=== PATIENT | female | born 1975 | race Caucasian/White ===

== ENCOUNTER → 2019-07-29 16:34 | Outpatient (CLI) | payer OTHER, SELFPAY ==
[2019-08-04 21:33] LABS: HPV APTIMA, High Risk Negative (Negative)
== END ==
PROVIDERS: Visit Provider Obstetrics & Gynecology
DX: Z12.4 Encounter for screening for malignant neoplasm of cervix (principal)
CPT/HCPCS: 87624; 88175; G0145

== ENCOUNTER → 2019-11-25 11:25 | Outpatient (CLI) | payer OTHER, SELFPAY ==
--- NOTE | 2019-11-25 11:29 | BI_ITS ---
MAMMOGRAPHY - BILATERAL SCREENING REASON FOR EXAM: Female, 44 years old. Routine annual screening examination. PERTINENT HISTORY: Mother with breast cancer. Aunt with breast cancer. TECHNIQUE: Digital bilateral breast catina (3D mammographic acquisition) in the CC and MLO projections. 2-D mediolateral oblique (MLO) and craniocaudad (CC) views of both breasts were obtained. CAD: Full Field Digital Mammography with Computer Added Detection was performed. COMPARISON: None. Baseline examination. FINDINGS: Breast Composition: There are scattered areas of fibroglandular density. There are no dominant masses or suspicious calcifications. Small benign-appearing bilateral axillary nodes. No other significant abnormalities are identified. BI/SCREEN MAMM (CAD) W/CATINA BILAT IMPRESSION: Negative screening mammogram. Yearly followup mammogram recommended. (A) ASSESSMENT CATEGORY: BIRADS Category 1: Negative. A letter regarding these results will be sent to the patient by the facility within 30 days. Approximately 10% of breast cancers are not detected by mammography. A normal mammogram should not delay biopsy of a clinically suspicious abnormality. [id number] Electronically Signed: Abrahan Dueñas, at 15:34 EDT , Service support ,
== END ==
PROVIDERS: PCP Family Medicine; Referring Provider Obstetrics & Gynecology; Visit Provider Obstetrics & Gynecology
DX: Z12.31 Encounter for screening mammogram for malignant neoplasm of breast (principal)
CPT/HCPCS: 77063; 77067

== ENCOUNTER → 2022-09-26 | Outpatient (CLI) | payer OTHER, SELFPAY ==
[2022-09-26 11:17] LABS: Absolute Lymphocyte Count 1.58 X10^3/uL (0.83-4.51); Absolute Neutrophil Count 1.9 X10^3/uL (2.0-7.7); Basophil# 0.06 X10^3/uL; Basophil% 1.5 % (0-1); Eosinophils% 2.5 % (0-5); Hematocrit 42.4 % (37-47); Hemoglobin 13.7 g/dL (12.0-15.0); Lymphocyte # 1.58 X10^3/ul (0.83-4.51); Lymphocyte % 39.9 % (19-41); Mean Corp Hgb Conc 32.3 g/dL (32-36); Mean Corpuscular Hgb 30.7 pg (27.0-32.0); Mean Corpuscular Volume 95.1 fL (81-99); Mean Platelet Vol. 8.7 fl (6.2-12.0); Monocyte# 0.28 X10^3/uL; Monocyte% 7.1 % (0-10); NRBC Flagged by Analyzer 0 % (0-5); Neutrophil # 1.93 X10^3/uL (2.7-7.7); Neutrophil % 48.7 % (47-70); Platelet Count 323 K/mm3 (150-450); RBC Distribution Width CV 12.7 % (11.6-14.6); RBC Distribution Width SD 44.3 fl (35.1-43.9); Red Blood Count 4.46 M/mm3 (4.2-5.4)
[2022-09-26 11:37] LABS: Estradiol 109.8 pg/mL; Follicle Stimulating Hormone 5.7 mIU/mL; Luteinizing Hormone 6.4 mIU/mL; Prolactin 15.3 ng/mL; T4 Free Direct 0.88 ng/dL (0.76-1.46); Thyroid Stim Hormone (TSH) 3.79 uIU/mL (0.358-3.74)
[2022-09-28 03:07] LABS: Testosterone Free 1.3 pg/mL (0.0-4.2)
== END | disposition home or self-care (01) ==
LOC: WOBLAB 10:41
PROVIDERS: PCP Family Medicine; Visit Provider Student in an Organized Health Care Education/Training Program
DX: N93.9 Abnormal uterine and vaginal bleeding, unspecified (principal)
CPT/HCPCS: 36415; 82670; 83001; 83002; 84146; 84402; 84439; 84443; 85025

== ENCOUNTER → 2022-10-11 | Outpatient (CLI) | payer OTHER, SELFPAY ==
--- NOTE | 2022-10-11 09:24 | US_ITS ---
STUDY: ULTRASOUND BREAST - RIGHT REASON FOR EXAM: Female, 46 years old. Nipple discharge in the right breast. TECHNIQUE: Axial and longitudinal images of the RIGHT breast were performed with a high resolution ultrasound transducer. # OF IMAGES: 44 COMPARISON: Comparison is made with prior mammogram done earlier in the day. FINDINGS: RIGHT Breast: The retroareolar region of the breast was examined with ultrasound. No sonographic abnormality is seen. IMPRESSION: No sonographic abnormality is seen. ASSESSMENT CATEGORY: BIRADS Category 1: Negative. A letter regarding these results will be sent to the patient by the facility within 30 days. Electronically Signed: Abrahan Dueñas MD at 10:58 EDT , STUDY: ULTRASOUND BREAST - LEFT REASON FOR EXAM: Female, 46 years old. Nipple discharge in the left breast. TECHNIQUE: Axial and longitudinal images of the LEFT breast were performed with a high resolution ultrasound transducer. # OF IMAGES: 44 COMPARISON: Comparison is made with prior mammogram done earlier in the day. FINDINGS: COMPARISON: Comparison is made with prior mammogram done earlier in the day. FINDINGS: LEFT Breast: The left retroareolar region was examined with ultrasound. No sonographic abnormality is seen. US/Breast Limited Unilateral
--- NOTE | 2022-10-11 09:24 | BI_ITS ---
MAMMOGRAPHY - BILATERAL DIAGNOSTIC REASON FOR EXAM: Female, 46 years old. Bilateral greenish discharge. PERTINENT HISTORY: Mother with breast cancer. Aunt with breast cancer. TECHNIQUE: Digital bilateral breast madalyn (3D mammographic acquisition) in the CC and MLO projections. 2-D mediolateral oblique (MLO) and craniocaudad (CC) views of both breasts were obtained. CAD: Full Field Digital Mammography with Computer Added Detection was performed. COMPARISON: Comparison is made with prior examination dated November 25, 2019. FINDINGS: Breast Composition: There are scattered areas of fibroglandular density. There are no dominant masses or suspicious calcifications. Stable benign-appearing bilateral axillary lymph nodes. No other significant abnormalities are identified. There has been no significant change since the prior study. BI/DIAG MAMM W/CAD, BILAT IMPRESSION: Stable bilateral diagnostic mammogram. With the patient''s history of bilateral breast discharge, correlation with ultrasound is recommended. ASSESSMENT CATEGORY: BIRADS Category 0: Incomplete. Need additional imaging evaluation. A letter regarding these results will be sent to the patient by the facility within 30 days. Approximately 10% of breast cancers are not detected by mammography. A normal mammogram should not delay biopsy of a clinically suspicious abnormality. Electronically Signed: Abrahan Dueñas MD at 10:53 EDT ,
== END | disposition home or self-care (01) ==
PROVIDERS: PCP Family Medicine; Referring Provider Student in an Organized Health Care Education/Training Program; Visit Provider Student in an Organized Health Care Education/Training Program
DX: N64.52 Nipple discharge (principal)
CPT/HCPCS: 76642; 77062; 77066; G0279

== ENCOUNTER 2025-03-28 18:56 | Emergency (ER) | payer OTHER, SELFPAY ==
[2025-03-28 18:59] VITALS: BP 138/65; PULSE 97; RESP 18; TEMP 36.1; O2SAT 100; BMI 38.8
--- NOTE | 2025-03-28 19:10 | US_ITS ---
PROCEDURE: US/Transvaginal Non-
--- NOTE | 2025-03-28 19:12 | ED.VIS.FEGU ---
HPI HPI - Female History of Present Illness Chief Complaint: Vag Bleeding Detail of Chief Complaint: Vaginal bleeding Informant: patient Narrative Narrative: Patient presents to the emergency department complaint of vaginal bleeding x 42 days. She thinks that she may have had a day or 2 in between where she was not having a lot of bleeding. Lately she has been passing large clots about every 30 minutes. She describes some pressure in her pelvis. Today she just did not feel right so she comes in for evaluation. She has not seen an SERVICE DESK ANALYST for this. She has not seen her primary care physician. Patient denies abdominal pain otherwise. She denies urinary symptoms. PFSH PFSH Home Medications ?Medication ?Instructions ?Recorded ?Last Taken ?Type medroxyprogesterone 10 mg tablet 10 mg PO DAILY #60 tabs 03/28/25 Unknown Rx (Provera) Allergy/AdvReac Type Severity Reaction Status Date / Time Latex, Natural Rubber Allergy Rash Verified 03/28/25 18:58 Social History Smoking Status: Never smoker ROS ROS ED Review of Systems ROS Unobtainable: other Constitutional Constitutional ED: Reports lethargy; Denies chills, fever(s), sweats or weight loss Eyes Eyes: Denies blurry vision, change in vision or diplopia ENT ENT ED: Denies rhinorrhea or sore throat Cardiovascular Cardiovascular: Denies chest pain, orthopnea or racing heartbeat Respiratory/Chest Respiratory/Chest: Denies cough, dyspnea, dyspnea on exertion, orthopnea or sputum Gastrointestinal Gastrointestinal: Denies abdominal pain, diarrhea, nausea or vomiting Genitourinary Genitourinary ED: Reports other Details: Vaginal bleeding ; Denies dysuria, hematuria or urinary frequency Musculoskeletal Musculoskeletal: Denies arthralgias, back pain, myalgias or neck pain Integumentary Denies abscess, Abrasions or rash Neurologic Neurologic: Denies headache(s) or weakness Psychiatric Psychiatric: Denies anxiety, depression or suicidal thoughts Endocrine Endocrinology: Denies polydipsia, polyphagia or polyuria Hematologic/Lymphatic Hematologic/Lymphatic: Denies easy bleeding, easy bruising or lymphadenopathy Allergic/Immunologic Allergic/Immunologic ED: Denies mouth swelling, tongue swelling or urticaria EXAM Physical Exam Const Vital Signs: 03/28/25 18:59 03/28/25 19:44 03/28/25 21:47 Temperature 97 F L Temperature Source Temporal Pulse Rate 97 89 Pulse Rate [Sitting (for 1 minute prior to obtaining)] 95 Pulse Rate [Standing (for 1 minute prior to obtaining)] 93 Respiratory Rate 18 18 Blood Pressure 138/65 H 137/73 H Blood Pressure [Lying] 126/59 H Blood Pressure [Sitting (for 1 minute prior to obtaining)] 146/63 H Blood Pressure [Standing (for 1 minute prior to obtaining)] 123/57 H Blood Pressure Mean 89 94 Blood Pressure Mean [Lying] 81 Blood Pressure Mean [Sitting (for 1 minute prior to obtaining)] 90 Blood Pressure Mean [Standing (for 1 minute prior to obtaining)] 79 Pulse Ox 100 99 Oxygen Delivery Method Room Air Room Air 03/28/25 23:00 Temperature Temperature Source Pulse Rate 81 Pulse Rate [Sitting (for 1 minute prior to obtaining)] Pulse Rate [Standing (for 1 minute prior to obtaining)] Respiratory Rate Blood Pressure 138/69 H Blood Pressure [Lying] Blood Pressure [Sitting (for 1 minute prior to obtaining)] Blood Pressure [Standing (for 1 minute prior to obtaining)] Blood Pressure Mean 87 Blood Pressure Mean [Lying] Blood Pressure Mean [Sitting (for 1 minute prior to obtaining)] Blood Pressure Mean [Standing (for 1 minute prior to obtaining)] Pulse Ox Oxygen Delivery Method Positive well nourished and well developed General Appearance ED: well developed and NAD HEENT Reports TM's clear and moist mucous membranes normocephalic and atraumatic; Negative for trauma or tenderness Tympanic Membrane ED: Yes TM's clear Eyes PERRL and EOMs intact bilaterally General Eye ED: Negative for pale conjunctiva or scleral icterus Neck no lymphadenopathy, supple and no JVD General: Negative for tenderness Chest Wall inspection of chest normal and palpation of chest normal Chest: Negative for tenderness Resp normal respiratory effort and clear to auscultation bilaterally Effort and Inspection: Negative for respiratory distress or pain with movement Auscultation: Negative for rhonchi, wheezes or diminished lung sounds Cardio regular rate, regular rhythm, S1 normal heart sound, S2 normal heart sound and no murmurs Peripheral Pulses: pulses 2+ throughout GI normal to inspection, nondistended, normoactive bowel sounds, soft to palpation, non-tender, non-distended and no masses Back/Spine no CVA tenderness and no thoracic nor lumbar tenderness Extremity normal to inspection General Extremety ED: Negative for edema General Extremity: Negative for edema Neuro oriented x3, CN's II-XII intact bilaterally, no sensory deficits noted and gait normal Sensorium / Orientation: awake, alert, oriented to person, oriented to place and oriented to time Motor Exam: strength 5/5 throughout and strength abnormal Psych mental status grossly normal Skin no rashes or lesions noted and no wounds MDM MDM MDM Narrative Medical decision making narrative: Patient presents with persistent vaginal bleeding with passing clots. IV line will be established. Type and screen will be ordered. Basic labs will be obtained. Will obtain a pelvic ultrasound to evaluate further. Will obtain a serum hCG. CBC with differential obtained from a count 4.5 with hemoglobin 8.8 and platelet count of 209. hCG was negative. Pelvic ultrasound showed thickened endometrium with differential to include hyperplasia/carcinoma/endometrial polyp or submucosal fibroid. Patient also with prominent periuterine veins which can be seen with clinical diagnosis of pelvic congestion syndrome. Discussed case with SERVICE DESK ANALYST on-call Dr. Montez who recommended we start patient on Megace. Patient will follow-up with their office. Lab Data Attestation: I reviewed the patient's lab results. Labs: Laboratory Results - last 24 hr 03/28/25 03/28/25 19:21 19:40 WBC 4.5 RBC 3.19 L Hgb 8.8 L Hct 28.8 L MCV 90.3 MCH 27.6 MCHC 30.6 L RDW Std Deviation 47.8 H RDW Coeff of Jermaine 14.7 H Plt Count 209 MPV 8.3 Immature Gran % (Auto) 0.200 Neut % (Auto) 60.4 Lymph % (Auto) 30.0 [place] % (Auto) 6.8 Eos % (Auto) 1.5 Baso % (Auto) 1.1 H Absolute Neuts (auto) 2.7 Absolute Lymphs (auto) 1.36 Nucleated RBC % 0 Serum , Qual NEGATIVE Blood Type A POSITIVE Antibody Screen NEGATIVE Radiography Diagnostic Testing: Clinical Impression(s) from Imaging Studies Transvaginal US 03/28/25 19:10 IMPRESSION: 1. Heterogeneous endometrium measuring 1.1 cm with mild internal color flow. Differential includes endometrial hyperplasia/carcinoma, endometrial polyp, or submucosal fibroid. Recommend SERVICE DESK ANALYST referral and endometrial sampling. 2. Prominent periuterine veins, as can be seen with the clinical diagnosis of pelvic congestion syndrome. Reading Location: [facility] Discharge Plan Triage Chief Complaint: Vag Bleeding ED Provider: Tiffany Banda Dx/Rx/DC Orders Clinical Impression: DUB (dysfunctional uterine bleeding) Instructions: ED Dysfunctional Uterine Bleeding Prescriptions: New medroxyprogesterone [Provera] 10 mg tablet 10 mg PO DAILY Qty: 60 0RF Rx Instructions: 1 tab 3 times daily x 3 days then 1 tab twice daily x 3 days then 1 tab daily to completion Primary Care Provider: Amber Cleary Referrals: Amber Cleary MD [Primary Care Provider, Family Practice] Sade Montez MD [Med Staff - Active Staff, Obstetrics-Gynecology (OBGYN)] - 3-5 Days Print Language: Yi Disposition Disposition: Home, Self Care
[2025-03-28 19:29] LABS: Hematocrit 28.8 % (37-47); Hemoglobin 8.8 g/dL (12.0-15.0); Immature Granulocytes Count 0.010 X10^3/uL (0.0-0.0); Mean Corp Hgb Conc 30.6 g/dL (32-36); Mean Corpuscular Volume 90.3 fL (81-99); Mean Platelet Vol. 8.3 fl (6.2-12.0); NRBC Flagged by Analyzer 0 % (0-5); Platelet Count 209 K/mm3 (150-450); RBC Distribution Width CV 14.7 % (11.6-14.6); RBC Distribution Width SD 47.8 fl (35.1-43.9); Red Blood Count 3.19 M/mm3 (4.2-5.4); White Blood Count 4.5 K/mm3 (4.4-11.0)
[2025-03-28] MEDS: 0.9% Normal Saline (1000mL) 1,000 ML 999 ML IV (19:43)
[2025-03-28 19:44] VITALS: BP 123/57; BP 126/59; BP 146/63; PULSE 93; PULSE 95
[2025-03-28 19:46] LABS: Internal QC Validated? YES +Cl - CLEAR BKGD; Pregnancy, Serum, hCG Quali. NEGATIVE Negative; Record Kit Lot#, Serum Preg. 0000980607
[2025-03-28 21:47] VITALS: BP 137/73; PULSE 89; RESP 18; O2SAT 99
[2025-03-28 23:00] VITALS: BP 138/69; PULSE 81
[2025-03-28 23:55] VITALS: BP 147/74; PULSE 91; RESP 20; TEMP 37.1; O2SAT 100
== END 2025-03-28 23:56 | disposition home or self-care (01) ==
PROVIDERS: Emergency Provider Emergency Medicine; PCP Family Medicine; Visit Provider Emergency Medicine
DX: N93.8 Other specified abnormal uterine and vaginal bleeding (principal)
CPT/HCPCS: 76830; 84703; 85025; 86850; 86900; 86901; 96360; 96361; 99283; A4216

== ENCOUNTER → 2025-04-01 | Outpatient (CLI) | payer OTHER, SELFPAY ==
--- NOTE | 2025-04-01 16:00 | EMB_PTH ---
PATIENT: CINDY HERNANDEZ LOC: [facility] U#:[id number] AGE/SX: 49/F ROOM: RE04/01/[address]: Dr. Sade Montez MD : 1975 BED: DIS: 04/01/2025 SPEC #: [id number] RECD: 04/01/25 16:55 STATUS: JV REJoss #: [id number] BALTAZAR: 04/01/25 16:[address]: Sade Montez DEPT: SURGICAL PATHOLOGY RECD BY: Ayad Coley ENTERED: 04/02/25 11:34 SP TYPE: ENDOM BX/C OTHR DR: Amber Cleary MD Tissues: A - Endometrium, NOS Procedures: Surgery Specimen Level IV HEADER OPERATION: Endometrial biopsy PRE-OP DIAGNOSIS: Abnormal uterine bleeding TISSUE SUBMITTED: A- Endometrial tissue MICROSCOPIC DIAGNOSIS A. Endometrium, biopsy: - Early secretory phase endometrium. - Endometrial polyp. MICROSCOPIC DESCRIPTION Slides are reviewed. GROSS DESCRIPTION A. Received in formalin labeled the patient's name and date of is a 2.4 x 1.3 x 0.3 cm aggregate of queen-pink cylindrical tissue fragments. Entirely submitted in 1 cassette. MA [id number]
--- OUTSIDE RECORDS SUMMARY | 2025-04-01 18:08 | XMS RPT_ITS | CCD ---
Author Organization [facility] ion Partnership [facility] Care Team Providers Care Sample Card Maker Name Role Phone Veronika Dai Attending Unavailable Amber Cleary Primary Care Unavailable Allergies Allergy Classification Reported Allergen(s) Allergy Type Date of Onset Reaction(s) Facility (1 source) natural latex rubber Drug allergy (disorder) 03-28-2025 [facility] Repository Results Test Name Value Interpretation Reference Range Facility CBC W/Diff, Automatedon 11-0 Absolute Lymph 1.36 X10 3/uL Normal 0.83-4.51 [facility] Comment on above: Performed By: #### L 100.0100 #### [facility] Laboratory [address] [place], [address] Absolute Neut 2.7 X10 3/uL Normal 2.0-7.7 [facility] Comment on above: Performed By: #### L 100.0100 #### [facility] Laboratory [address] [place], [address] Basophils/100 WBC (Bld) 1.1 % High 0-1 [facility] Comment on above: Performed By: #### L 100.0100 #### [facility] Laboratory [address] [place], [address] Eosinophils/100 WBC (Bld) 1.5 % Normal 0-5 [facility] Comment on above: Performed By: #### L 100.0100 #### [facility] [address] [place], [address] Erythrocyte distribution width (RBC) [Ratio] 14.7 % High 11.6-14.6 [facility] Comment on above: Performed By: #### L 100.0100 #### [facility] [address] [place], [address] Hematocrit (Bld) [Volume fraction] 28.8 % Low 37-47 [facility] Comment on above: Performed By: #### L 100.0100 #### [facility] [address] [place], [address] Hemoglobin (Bld) [Mass/Vol] 8.8 g/dL Low 12.0-15.0 [facility] Comment on above: Performed By: #### L 100.0100 #### [facility] [address] [place], [address] IG% 0.200 Normal 0.0-0.9 [facility] Comment on above: Result Comment: IG% - Immature Granulocytes (promyelocytes, myelocytes and metamyelocytes) > 1% indicates that a LEFT SHIFT is Present. Performed By: #### L 100.0100 #### [facility] [address] [place], [address] Lymphocytes/100 WBC (Bld) 30.0 % Normal 19-41 [facility] Comment on above: Performed By: #### L 100.0100 #### [facility] [address] [place], [address] MCH (RBC) [Entitic mass] 27.6 pg Normal 27.0-32.0 [facility] Comment on above: Performed By: #### L 100.0100 #### [facility] [address] [place], [address] MCHC (RBC) [Mass/Vol] 30.6 g/dL Low 32-36 [facility] Comment on above: Performed By: #### L 100.0100 #### [facility] [address] [place], [address] MCV (RBC) [Entitic vol] 90.3 fL Normal 81-99 [facility] Comment on above: Performed By: #### L 100.0100 #### [facility] [address] [place], [address] Monocytes/100 WBC (Bld) 6.8 % Normal 0-10 [facility] Comment on above: Performed By: #### L 100.0100 #### [facility] [address] [place], [address] Neutrophils/100 WBC (Bld) 60.4 % Normal 47-70 [facility] Comment on above: Performed By: #### L 100.0100 #### [facility] [address] [place], [address] Nucleated RBC (Bld) [#/Vol] 0 10*3/uL Normal 0-5 [facility] Comment on above: Performed By: #### L 100.0100 #### [facility] [address] [place], [address] Platelet mean volume (Bld) [Entitic vol] 8.3 fL Normal 6.2-12.0 [facility] Comment on above: Performed By: #### L 100.0100 #### [facility] [address] [place], [address] Platelets (Bld) [#/Vol] 209 10*3/uL Normal 150-450 [facility] Comment on above: Performed By: #### L 100.0100 #### [facility] [address] [place], [address] RBC (Bld) [#/Vol] 3.19 10*6/uL Low 4.2-5.4 [facility] Comment on above: Performed By: #### L 100.0100 #### [facility] [address] [place], [address] RDW SD 47.8 fl High 35.1-43.9 [facility] Comment on above: Performed By: #### L 100.0100 #### [facility] [address] [place], [address] WBC (Bld) [#/Vol] 4.5 10*3/uL Normal 4.4-11.0 [facility] Comment on above: Performed By: #### L 100.0100 #### [facility] [address] [place], [address] Emergency Department Summary on 03-28-2025 Emergency Department Summary [facility] Medical Records Department [address] [place] [address] Emergency Department Summary 03/28/25 MR#: [id number] Acct: [id number] Name: CINDY HERNANDEZ Rep #: [id number] : 1975 49 From: Tiffany Banda DO PCP: Dr. Amber Cleary MD Status:DEP ER Location: ED HPI HPI - Female History of Present Illness Chief Complaint: Vag Bleeding Detail of Chief Complaint: Vaginal bleeding Informant: patient Narrative Narrative: Patient presents to the emergency department complaint of vaginal bleeding x 42 days. She thinks that she may have had a day or 2 in between where she was not having a lot of bleeding. Lately she has been passing large clots about every 30 minutes. She describes some pressure in her pelvis. Today she just did not feel right so she comes in for evaluation. She has not seen an E/M ENGINEER for this. She has not seen her primary care physician. Patient denies abdominal pain otherwise. She denies urinary symptoms. PFSH PFSH Home Medications ???Medication ???Instructions ???Recorded ???Last Taken ???Type medroxyprogesterone 10 mg tablet 10 mg PO DAILY #60 tabs 03/28/25 U nknown Rx (Provera) Allergy/AdvReac Type Severity Reaction Status Date / Time Latex, Natural Rubber Allergy Rash Verified 03/28/25 18:58 Social History Smoking Status: Never smoker ROS ROS ED Review of Systems ROS Unobtainable: other Constitutional Constitutional ED: Reports lethargy; Denies chills, fever(s), sweats or weight loss Eyes Eyes: Denies blurry vision, change in vision or diplopia ENT ENT ED: Denies rhinorrhea or sore throat Cardiovascular Cardiovascular: Denies chest pain, orthopnea or racing heartbeat Respiratory/Chest Respiratory/Chest: Denies cough, dyspnea, dyspnea on exertion, orthopnea or sputum Gastrointestinal Gastrointestinal: Denies abdominal pain, diarrhea, nausea or vomiting Genitourinary Genitourinary ED: Reports other Details: Vaginal bleeding ; Denies dysuria, hematuria or urinary frequency Musculoskeletal Musculoskeletal: Denies arthralgias, back pain, myalgias or neck pain Integumentary Denies abscess, Abrasions or rash Neurologic Neurologic: Denies headache(s) or weakness Psychiatric Psychiatric: Denies anxiety, depression or suicidal thoughts Endocrine Endocrinology: Denies polydipsia, polyphagia or polyuria Hematologic/Lymphati c Hematologic/Lymphati c: Denies easy bleeding, easy bruising or lymphadenopathy Allergic/Immunologic Allergic/Immunologic ED: Denies mouth swelling, tongue swelling or urticaria EXAM Physical Exam Const Vital Signs: 03/28/25 18:59 03/28/25 19:44 03/28/25 21:47 Temperature 97 F L Temperature Source Temporal Pulse Rate 97 89 Pulse Rate [Sitting (for 1 minute prior to obtaining)] 95 Pulse Rate [Standing (for 1 minute prior to obtaining)] 93 Respiratory Rate 18 18 Blood Pressure 138/65 H 137/73 H Blood Pressure [Lying] 126/59 H Blood Pressure [Sitting (for 1 minute prior to obtaining)] 146/63 H Blood Pressure [Standing (for 1 minute prior to obtaining)] 123/57 H Blood Pressure Mean 89 94 Blood Pressure Mean [Lying] 81 Blood Pressure Mean [Sitting (for 1 minute prior to obtaining)] 90 Blood Pressure Mean [Standing (for 1 minute prior to obtaining)] 79 Pulse Ox 100 99 Oxygen Delivery Method Room Air Room Air 03/28/25 23:00 Temperature Temperature Source Pulse Rate 81 Pulse Rate [Sitting (for 1 minute prior to obtaining)] Pulse Rate [Standing (for 1 minute prior to obtaining)] Respiratory Rate Blood Pressure 138/69 H Blood Pressure [Lying] Blood Pressure [Sitting (for 1 minute prior to obtaining)] Blood Pressure [Standing (for 1 minute prior to obtaining)] Blood Pressure Mean 87 Blood Pressure Mean [Lying] Blood Pressure Mean [Sitting (for 1 minute prior to obtaining)] Blood Pressure Mean [Standing (for 1 minute prior to obtaining)] Pulse Ox Oxygen Delivery Method Positive well nourished and well developed General Appearance ED: well developed and NAD HEENT Reports TM's clear and moist mucous membranes normocephalic and atraumatic; Negative for trauma or tenderness Tympanic Membrane ED: Yes TM's clear Eyes PERRL and EOMs intact bilaterally General Eye ED: Negative for pale conjunctiva or scleral icterus Neck no lymphadenopathy, supple and no JVD General: Negative for tenderness Chest Wall inspection of chest normal and palpation of chest normal Chest: Negative for tenderness Resp normal respiratory effort and clear to auscultation bilaterally Effort and Inspection: Negative for respiratory distress or pain with movement Auscultation: Negative for rhonchi, wheezes or diminished lung sounds Cardio regular rate, regular rhythm, S1 normal heart s (more content not included)... Normal [facility] ,Serum,hCG Quali.on 03-28-2025 HCG, SERUM QUAL Negative Normal [facility] Comment on above: Performed By: #### L 700.6800 #### [facility] Laboratory [address] [facility] [place], [place], [address] Transvaginal Non-on 03-28-2025 Transvaginal Non- [facility] Imaging Services [address] [place], [place] [address] Transvaginal Non- MR#: [id number] Acct: [id number] Name: CINDY HERNANDEZ Rep #: [id number] : 1975 F 49 From: Clayton Rainey MD PCP: Dr. Amber Cleary MD Status: [facility] ER Study: Transvaginal Non- Date of Exam: Exam# [id number] Ordering Dr: Tiffany Banda DO PROCEDURE: TRANSVAGINAL NON- 03/28/2025 REASON FOR EXAM: VAGINAL BLEEDING TECHNIQUE: Procedure Code: USTVAG Modality: US Procedure: TRANSVAGINAL NON- COMPARISON: None FINDINGS: Measurements: Uterus: 9.5 x 4.0 x 5.3 cm for volume of 104.0 mL Endometrial Thickness: 1.1 cm Right Ovary: 4.1 x 1.7 x 1.5 cm for volume of 5.3 mL Left Ovary: 5.0 x 1.4 x 2.0 cm for volume of 7.0 mL Uterus: Anteverted. Normal contour and myometrial echotexture. Nabothian cysts at the cervix. Endometrium: Heterogeneous echotexture with mild internal color flow. Right ovary: Normal size and echotexture. Left ovary: Normal size and echotexture. Cul-de-sac: No free intraperitoneal fluid identified. Prominent periuterine veins. DOPPLER: Color Doppler: Normal color flow doppler signal at both ovaries. US/Transvaginal Non- IMPRESSION: 1. Heterogeneous endometrium measuring 1.1 cm with mild internal color flow. Differential includes endometrial hyperplasia/carcinom a, endometrial polyp, or submucosal fibroid. Recommend E/M ENGINEER referral and endometrial sampling. 2. Prominent periuterine veins, as can be seen with the clinical diagnosis of pelvic congestion syndrome. Reading Location: [id number] CC: Dr. Amber Cleary MD; Dr. Tiffany Banda DO Plant Pathologist: Signed Normal [facility] Type AND Screenon 03-28-2025 Ab SCREEN GEL Negative Normal [facility] Comment on above: Order Comment: HVAG Performed By: #### B TS #### [facility] Laboratory [address] [place], [address] Absolute lymphocyte countOrd ered By: Dr. Jeong on 09-26-2022 Lymphocytes Auto (Unsp spec) [#/Vol] 1.58 10*3/uL 0.83-4.51 [facility] Basophil percentageOrdered B y: Dr. Jeong on 09-26-2022 Basophils/100 WBC (Bld) 1.5 % 0-1 [facility] Eosinophils/100 WBC (Bld) 2.5 % 0-5 [facility] Neutrophils (Bld) [#/Vol] 1.9 10*3/uL 2.0-7.7 [facility] Neutrophils/100 WBC (Bld) 48.7 % 47-70 [facility] WBC (Bld) [#/Vol] 4.0 10*3/uL 4.4-11.0 [facility] Blood erythrocytes count (nu mber/volume)Ordered By: Dr. Jeong on 09-26-2022 RBC (Bld) [#/Vol] 4.46 10*6/uL 4.2-5.4 [facility] Blood hemoglobin measurement (mass/volume)Ordered By: Dr. Jeong on 09-26-2022 Hemoglobin (Bld) [Mass/Vol] 13.7 g/dL 12.0-15.0 [facility] Blood lymphocytes/100 leukoc ytesOrdered By: Dr. Jeong on 09-26-2022 Lymphocytes/100 WBC (Bld) 39.9 % 19-41 [facility] Blood monocytes/100 leukocyt esOrdered By: Dr. Jeong on 09-26-2022 Monocytes/100 WBC (Bld) 7.1 % 0-10 [facility] Blood platelet mean volumeOr dered By: Dr. Jeong on 09-26-2022 Platelet mean volume (Bld) [Entitic vol] 8.7 fL 6.2-12.0 [facility] Determination of erythrocyte mean corpuscular volume (MCV)Ordered By: Dr. Jeong on 09-26-2022 MCV (RBC) [Entitic vol] 95.1 fL 81-99 [facility] Hematocrit Auto (Bld) [Volum e fraction]Ordered By: Dr. Jeong on 09-26-2022 Hematocrit (Bld) [Volume fraction] 42.4 % 37-47 [facility] Laboratory - Chemistry and C hemistry - challengeOrdered By: Dr. Jeong on 09-26-2022 Free T4 [Mass/Vol] 0.88 ng/dL 0.76-1.46 [facility] Laboratory - Hematology and Cell countsOrdered By: Dr. Jeong on 09-26-2022 Erythrocyte distribution width (RBC) [Entitic vol] 44.3 fL 35.1-43.9 [facility] Erythrocyte distribution width (RBC) [Ratio] 12.7 % 11.6-14.6 [facility] Immature granulocytes/100 WBC (Bld) 0.300 % 0.0-0.9 [facility] Comment on above: IG% - Immature Granu locytes (promyelocytes, myelocytes and metamyelocytes) > 1% indicates that a LEFT SHIFT is Present. MCH (RBC) [Entitic mass] 30.7 pg 27.0-32.0 [facility] Nucleated RBC/100 WBC (Bld) [Ratio] 0 % 0-5 [facility] MCHC Auto (RBC) [Mass/Vol]Or dered By: Dr. Jeong on 09-26-2022 MCHC (RBC) [Mass/Vol] 32.3 g/dL 32-36 [facility] No Panel InformationOrdered By: Dr. Jeong on 09-26-2022 Follicle Stimulating Hormone 5.7 mIU/mL [facility] Comment on above: NORMAL REFERENCE RAN [facility] FEMALE FOLLICULAR 2.3 - 12.6 mIU/mL MID-CYCLE PEAK 5.2 - 17.5 mIU/mL LUTEAL 1.7 - 12.9 mIU/mL POST-MENOPAUSAL ON MHT 5.9 - 72.8 mIU/mL NOT ON MHT 12.7 - 132.2 mlU/mL MALE 0.7 - 10.8 mIU/mL Luteinizing Hormone 6.4 mIU/mL [facility] Comment on above: NORMAL REFERENCE RAN [facility] FEMALE FOLLICULAR 1.9 - 26.2 mIU/mL MID-CYCLE PEAK 22.8 - 76.1 mIU/mL LUTEAL 0.6 - 16.6 mIU/mL POST-MENOPAUSAL ON MHT 1.1 - 52.4 mIU/mL NOT ON MHT 8.6 - 61.8 mIU/mL MALE 1.2 - 10.6 mIU/mL Thyroid Stimulating Hormone (TSH) 3.79 uIU/mL 0.358-3.74 [facility] Platelets bldOrdered By: Dr. Jeong on 09-26-2022 Platelets (Bld) [#/Vol] 323 10*3/uL 150-450 [facility] Serum or plasma estradiol (E 2) measurement (mass/volume)Ordered By: Dr. Jeong on 09-26-2022 E2 [Mass/Vol] 109.8 pg/mL [facility] Comment on above: NORMAL REFERENCE RAN GES FEMALE FOLLICULAR 21.4 - 164.8 pg/mL MID-CYCLE PEAK 49.9 - 367.2 pg/mL LUTEAL 40.2 - 259.0 pg/mL POST-MENOPAUSAL ON MHT <11.0 - 462.1 pg/mL NOT ON MHT <11.0 - 58.3 pg/mL MALE <11.0 - 52.5 pg/mL NOTE:[employer] HAS CONFIRMED THE DRUG FULVETRANT (FASLODEX) MAY CAUSE FALSELY ELEVATED ESTRADIOL RESULTS WHEN USING THIS TEST METHOD. IF PATIENT IS TAKING FULVESTRANT AN ALTERNATIVE METHOD SHOULD BE USED TO DETERMINE ESTRADIOL CONCENTRATION. Serum or plasma prolactin me asurement (mass/volume)Ordered By: Dr. Jeong on 09-26-2022 Prolactin [Mass/Vol] 15.3 ng/mL [facility] Comment on above: NORMAL REFERENCE RAN GES FEMALE NON- 2.2 - 30.3 ng/mL 8.1 - 347.6 ng/mL POST-MENOPAUSAL 0.7 - 31.5 ng/mL MALE 2.5 - 17.4 ng/mL Serum or plasma testosterone free measurement (mass/volume)Ordered By: Dr. Jeong on 09-26-2022 Testosterone Free [Mass/Vol] 1.3 pg/mL 0.0-4.2 [facility] Comment on above: Performed at: [address] [id number] Director: Lilia Taylor MD, Phone: [phone] Encounters Encounter Date Encounter Type Care Provider Facility Start: 03-28-2025 End: 03-28-2025 Emergency department patient visit Remus Ungur Facility: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 if [facility] Work Phone: Start: 1975 Sex Assigned At Female [facility] Evaluation note Note Date & Type Note Facility Evaluation note No assessment information availa ble [facility] Work Phone: Summary Purpose Family History No Family History Records Found Advance Directives No Advanced Directives Records Found Additional Source Comments Care Teams (unrecognized sec tion and content) Team Status: Active Member Role Status Dates Portia Simms DO Primary Care Provider Active Team Status: Inactive Member Role Status Dates Dr. Chay Vickers MD Primary Care Provider Active Dr. Ashley Jeong DO Attending Provider Active Goals (unrecognized section and content) Goals may be documented in a n alternate section INFORMATION SOURCE (unrecogn ized section and content) DATE CREATED AUTHOR 03/29/2025 [facility] FOR RECORDS PERTAINING TO PATIENTS WHO ARE OR HAVE BEEN ENROLLED IN A CHEMICAL DEPENDENCY/SUBSTANCEABUSE PROGRAM, SOME INFORMATION MAY BE OMITTED. This clinical summary was aggregated from multiple sources. Caution should be exercised in using it in the provision of clinical care. This summary normalizes information from multiple sources, and as a consequence, information in this document may materially change the coding, format and clinical context of patient data. In addition, data may be omitted in some cases. CLINICAL DECISIONS SHOULD BE BASED ON THE PRIMARY CLINICAL RECORDS. [employer] [facility]. provides no warranty or guarantee of the accuracy or completeness of information in this document.
[2025-04-01 18:17] LABS: Follicle Stimulating Hormone 17.3 mIU/mL
[2025-04-04 22:07] LABS: PROLACTIN 18.7 ng/mL (4.8-33.4)
[2025-04-06 09:08] LABS: HPV APTIMA, High Risk Negative (Negative)
== END | disposition home or self-care (01) ==
PROVIDERS: PCP Family Medicine; Visit Provider Obstetrics & Gynecology
DX: N84.0 Polyp of corpus uteri (principal); N93.9 Abnormal uterine and vaginal bleeding, unspecified; Z12.4 Encounter for screening for malignant neoplasm of cervix
CPT/HCPCS: 36415; 82627; 82670; 83001; 83498; 84146; 84402; 84439; 84443; 87624; 88175; 88305; 82626; G0145

== ENCOUNTER 2025-05-01 08:02 | Day surgery (SDC) | payer OTHER, SELFPAY ==
--- NOTE | 2025-04-28 13:41 | EKG12_ITS ---
Test Reason : PREOP Blood Pressure : */* mmHG Vent. Rate : 82 BPM Atrial Rate : 82 BPM P-R Int : 164 ms QRS Dur : 88 ms QT Int : 392 ms P-R-T Axes : 0 54 14 degrees QTcB Int : 457 ms Normal sinus rhythm Minor T changes-inferior Borderline Confirmed by Maximo Reece ([id number]), editorial cartoonist HERB ROBLES ([id number]) on 04/29/2025 5:52:03 AM Referred By: Sade Montez Confirmed By: Maximo Reece
[2025-04-28 15:10] LABS: Hematocrit 30.8 % (37-47); Hemoglobin 9.0 g/dL (12.0-15.0); Mean Corp Hgb Conc 29.2 g/dL (32-36); Mean Corpuscular Volume 84.4 fL (81-99); Mean Platelet Vol. 9.0 fl (6.2-12.0); Platelet Count 241 K/mm3 (150-450); RBC Distribution Width CV 14.8 % (11.6-14.6); RBC Distribution Width SD 45.5 fl (35.1-43.9); Red Blood Count 3.65 M/mm3 (4.2-5.4); White Blood Count 4.6 K/mm3 (4.4-11.0)
--- NOTE | 2025-04-29 09:25 | PAT.ANESEVAL ---
Pre-Assessment Diagnosis/Proposed Procedure Planned Operative Procedure(s): (N/A) Hysteroscopy D&C, polypectomy, Symphion Anesthesia History Anesthesia History - hydrate control tender: Anesthesia History - hydrate control tender Hx Hospitalization No 04/22/25 10:10 Any Problems With Anesthesia No 04/22/25 10:10 Cholinesterase deficiency No 04/22/25 10:10 You/Your Family Experience No 04/22/25 10:10 fever (hyperthermia) with Relationship Recent Exposure to Contagious Disease Does patient have nerve No 04/22/25 10:10 stimulator Patient instructed to have device shut off --Does patient have Pacemaker or ICD? When Was Last Pacemaker Check QUESTION #4 FULL TEXT: You/Your Family Experience fever (hyperthermia) with Anesthesia Last Oral Intake Last Oral intake: Last Oral Intake NPO since Meds taken in AM with sips of water? Meds patient instructed to take am of surgery PONV PONV - hydrate control tender: PONV - hydrate control tender Female Yes 04/22/25 10:10 HX of Motion Sickness No 04/22/25 10:10 HX of N/V After Surgery No 04/22/25 10:10 Non-Smoker Yes 04/22/25 10:10 Duration of Surgery greater No 04/22/25 10:10 than 60 minutes Number of Risk Factors 2 04/22/25 10:10 PONV Score Moderate Risk 04/22/25 10:10 Height & Weight Height & Weight: Anesthesia: Height & Weight Height 6 ft 04/20/25 16:09 Respiratory Assessment Respiratory Assessment - hydrate control tender: Respiratory Tract Infection Hx - hydrate control tender Hx Respiratory Tract Infection No 04/22/25 10:10 STOP Sleep Apnea STOP Sleep Apnea - hydrate control tender: STOP Sleep Apnea - hydrate control tender Hx Hypertension No 04/22/25 10:10 Hx Sleep Apnea No 04/22/25 10:10 CPAP BIPAP Do you snore loudly (louder No 04/22/25 10:10 than talking or can be heard Do you often feel tired/ No 04/22/25 10:10 fatigued/ sleepy during daytime? Has anyone observed you stop No 04/22/25 10:10 breathing during sleep? STOP Results Negative 04/22/25 10:10 QUESTION #5 FULL TEXT : Do you snore loudly (louder than talking or can be heard through closed doors)? 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 Specify any problems Hx of Preganancy in last 3 N/A 04/22/25 10:10 Months Nurse Filling Out Transfusion NBUCHER 04/22/25 10:10 & Questions: Date: 04/22/25 04/22/25 10:10 Time: 10:11 04/22/25 10:10 Patient unable to answer at this time (ie. confused, unrespo /Reproduction History /Reproductive History - hydrate control tender: /Reproductive Hx- hydrate control tender Hx Now No 04/22/25 10:10 Gestational Age (in weeks): EDC: Hx Hx Para Hx Section SAB No 04/22/25 10:10 Does the father of the baby or his family experience fever w Father of the baby Malignant Hypertension history comment [facility] Medical History (Updated 04/22/25 @ 10:15 by Stephania Monge) Wears glasses Non-smoker Osteoarthritis Anemia Home Medications ?Medication ?Instructions ?Recorded ?Last Taken ?Type medroxyprogesterone 10 mg tablet 10 mg PO DAILY #60 tabs 04/20/25 Unknown Rx (Provera) Allergy/AdvReac Type Severity Reaction Status Date / Time Latex, Natural Rubber Allergy Rash Verified 04/22/25 10:09 Family History Mother Ductal carcinoma HER2 negative Aunt Ductal carcinoma Sister Melanoma Grandmother Ovarian cancer Non-Hodgkin lymphoma Surgical History (Updated 04/22/25 @ 10:15 by Stephania Monge) History of eye surgery H/O knee surgery Social History number of children: 1 Smoking Status: Never smoker alcohol intake: current alcohol intake frequency: a few times a week substance use type: does not use sena/jainism: Faith seatbelt use: always do you feel safe at home: Yes additional social history: Musa Audit: Pertinent Findings Pertinent Findings EKG Perinent findings: 04/28/2025. Normal sinus rhythm 82 beats per per minute minor T changes/inferior. Additional pertinent findings: Hemoglobin 9 g/dL. 04/28/2025. Should be adequate for procedure. Recommendation Anesthesia Recommendation Anesthesia recommendation: OPTIMIZED for anesthesia
[2025-04-29 14:08] LABS: Internal QC Validated? YES +Cl - CLEAR BKGD; Pregnancy, Urine Negative Negative; Record Kit Lot#,Urine Preg 0000980607
[2025-05-01] VITALS (8 sets, daily range): BP systolic 96–141; BP diastolic 46–78; PULSE 74–90; RESP 12–20; TEMP 36.3–36.9; O2SAT 98–100; BMI 38.2
--- NOTE | 2025-05-01 07:29 | PCM.HP.BLA ---
History and Physical Date of Admission: 05/01/25 Intake Vital Signs 04/01/2515:14 04/20/2516:09 Height 6 ft 6 ft Weight: 283 lb 9 oz 285 lb 6 oz BMI 38.4 38.7 BP 132/76 H 142/76 H Intake Visit Reasons: Abnormal uterine bleeding follow up Housekeeping Cleaner Required: No Is patient in pain?: No Allergies Latex, Natural Rubber Allergy (Verified 04/20/25 16:13) Rash Medications ?Medication ?Instructions ?Recorded ?Confirmed ?Type medroxyprogesterone 10 mg tablet 10 mg PO DAILY #60 tabs 04/20/25 04/20/25 Rx (Provera) Patient : No : No PFSH Medical History Osteoarthritis Anemia Surgical History H/O knee surgery Family History Mother Ductal carcinoma HER2 negative Aunt Ductal carcinoma Sister Melanoma Grandmother Ovarian cancer Non-Hodgkin lymphoma Social History number of children: 1 Smoking Status: Never smoker alcohol intake: current alcohol intake frequency: a few times a week substance use type: does not use sena/shinto: Nondenominational seatbelt use: always do you feel safe at home: Yes additional social history: Musa HPI Abnormal uterine bleeding follow up Details: HPI: The patient is a 49-year-old female with a history of heavy menstrual bleeding presenting for follow-up. Menstrual History - No episodes of bleeding since the last visit. - Denies chest pain, shortness of breath, abdominal pain, leg swelling, bladder symptoms, bowel symptoms, or neurologic symptoms. Past Diagnostic Results - Endometrial biopsy: No evidence of pre-cancerous changes; presence of a polyp. - Ultrasound: Heterogeneous echo texture with mild internal color flow. - Hemoglobin: 8.8 g/dL. Subjective Sections: Current Meds - Oral progesterone PMHx - Uterine polyp - Menorrhagia Social Hx - Number of children: 1 daughter ROS: Cardiovascular: (-) chest pain, (-) leg swelling Respiratory: (-) shortness of breath Gastrointestinal: (-) abdominal pain Genitourinary: (-) vaginal bleeding Psychiatric: (+) sleep deprivation PhysicalExam: GENERAL: Pleasant; in no apparent distress BREAST: soft, non-tender, symmetric, no dominant mass, normal nipple-areolar complex, no lymphadenopathy, no nipple discharge CARDIOVASCULAR: No lower extremity edema PULMONARY: normal inspiratory effort ABDOMEN: soft, non-tender, no masses - Patient consent for exam received NEURO: alert and oriented x3 EXTREMITIES: normal History 2 Elective abortions 1 Hx Para 1 Spontaneous abortions Hx # Term Pregnancies Ectopic pregnancies Hx # Pregnancies Multiple births # of living children 1 Past Pregnancies Del. Date Name GA/Weeks Outcome Route Bth Weight Gen [facility] Coding Level of Care Code Off vis,est,level 4 Diagnoses Abnormal uterine bleeding N93.9 Family history of ovarian cancer Z80.41 Additional Codes SDOH Screening - Does the patient want assistance with any of the above?: No ([id number]) Assessment and Plan Assessment and Plan (1) Abnormal uterine bleeding: Status: Acute Comment: lab workup, emb done, mojgan, plan d and c hysteroscopy symphion. prefers medical management if this fails. (2) Family history of ovarian cancer: Status: Acute Comment: offer empower testing at fu visit. Orders: Referrals Internal Medicine N93.9 - Abnormal uterine and vaginal bleeding, unspecified, Z80.41 - Family history of malignant neoplasm of ovary Medications: Refilled medroxyprogesterone (Provera) 1 tab 3 times daily x 3 days then 1 tab twice daily x 3 days then 1 tab daily to completion 10 mg PO DAILY 60 tabs 1RF Plan Assessment/Plan: # Endometrial polyp (N84.0): - Pathologically confirmed polyp fragment obtained from prior endometrial biopsy. - Scheduled dilation and curettage with hysteroscopy and polypectomy on April 28. - Discussed procedure details and risks including anesthesia complications, bleeding, infection, and potential uterine perforation. Informed that further surgical intervention (e.g., laparoscopy) may be necessary if perforation occurs. - Patient instructed on preoperative requirements: no solid food for 8 hours before the procedure, clear liquids allowed until 2 hours prior, and mandatory use of special soap neck down the night before and morning of surgery. - Advised that the hospital will confirm arrival time one day prior; patient to arrive 2 hours before surgery and arrange a driver license reviewing officer for transportation. - Postoperative instructions include expectation of mild cramping or spotting, use of NSAIDs or acetaminophen for pain, avoidance of tub baths for 1?2 weeks, and no vaginal penetration for 2?3 weeks. # Abnormal uterine and vaginal bleeding, unspecified (N93.9): - Currently no active bleeding, though previously heavy and prolonged, likely secondary to polyp. - Advised removal of the endometrial polyp first to assess if bleeding resolves. - Counseling provided regarding alternative future interventions if heavy bleeding recurs, including progesterone-only therapy, levonorgestrel intrauterine device, combined oral contraceptives, or endometrial ablation. # Iron deficiency anemia (D50.9): - Hemoglobin previously documented at 8.8 g/dL, likely attributed to chronic blood loss. - Will monitor hemoglobin levels post-polypectomy to determine if further intervention is necessary. - Patient consented to potential blood transfusion if required in an emergency. Patient Instructions: - You are scheduled for a dilation and curettage (D&C) with hysteroscopy and Sympion polypectomy to remove the uterine polyp. - Pre-operative preparation: use the special surgical soap from your neck down the night before and the morning of surgery. - Do not eat for 8 hours before your procedure. You may have clear liquids (black tea or black coffee without cream) up until 2 hours before. - The procedure is set for April 28. The surgery center will call you the day before with your exact arrival time. Plan to arrive 2 hours before your scheduled surgery. - Arrange for a responsible adult to drive you to and from the facility. - Expect some light spotting and cramping afterward. You may take Tylenol or naproxen for discomfort as needed. - You may resume normal activities the day after your procedure. Avoid tub baths for 1?2 weeks and do not insert anything into the vagina (tampons, intercourse) for 2?3 weeks. - If you experience recurrent heavy bleeding after the polyp removal, hormone options such as a progesterone-only IUD or other progesterone therapies can be considered.
--- NOTE | 2025-05-01 08:14 | PCM.PRE.AN2 ---
ASA Classification* ASA Classification ASA Classification: 2 Assessment & Plan Anesthesia* Anesthesia Assessment Anesthesia Assessment: Discussed sedation and/or anesthesia options, risks, benefits, and alternatives with patient/parents/legal guardian/POA. Questions invited. The patient/parents/legal guardian/POA seems to understand and agrees to proceed with anesthesia plan. Reviewed the physical assessment, medical history, allergy history and patient home medications list prior to surgery/procedure/anesthetic and documented any changes. Performed airway and anesthesia risk assessments. Anesthesia Type Anesthesia Type: MAC Anesthesia Focused Assessment* Airway Assessment Mouth opens: >3 cm Mallampati Score: II Labs Anesthesia Preop lab: CBC WBC, (4.4-11.0) 4.6 K/mm3 04/28/25, 13:56 RBC, (4.2-5.4) 3.65 M/mm3 L 04/28/25, 13:56 Hgb, (12.0-15.0) 9.0 g/dL L 04/28/25, 13:56 Hct, (37-47) 30.8 % L 04/28/25, 13:56 Plt Count, (150-450) 241 K/mm3 04/28/25, 13:56 CHEMISTRY TSH, (0.300-4.200) 2.160 uIU/mL 04/01/25, 16:11 COAG Urine Test Negative Negative 04/29/25, 13:48 Pre-Assessment Diagnosis/Proposed Procedure Planned Operative Procedure(s): (N/A) Hysteroscopy D&C, polypectomy, Symphion Anesthesia History Anesthesia History - environmental protection forester: Anesthesia History - environmental protection forester Hx Hospitalization No 04/22/25 10:10 Any Problems With Anesthesia No 04/22/25 10:10 Cholinesterase deficiency No 04/22/25 10:10 You/Your Family Experience No 04/22/25 10:10 fever (hyperthermia) with Relationship Recent Exposure to Contagious Disease Does patient have nerve No 04/22/25 10:10 stimulator Patient instructed to have device shut off --Does patient have Pacemaker or ICD? When Was Last Pacemaker Check QUESTION #4 FULL TEXT: You/Your Family Experience fever (hyperthermia) with Anesthesia Last Oral Intake Last Oral intake: Last Oral Intake NPO since Meds taken in AM with sips of water? Meds patient instructed to take am of surgery PONV PONV - environmental protection forester: PONV - environmental protection forester Female Yes 04/22/25 10:10 HX of Motion Sickness No 04/22/25 10:10 HX of N/V After Surgery No 04/22/25 10:10 Non-Smoker Yes 04/22/25 10:10 Duration of Surgery greater No 04/22/25 10:10 than 60 minutes Number of Risk Factors 2 04/22/25 10:10 PONV Score Moderate Risk 04/22/25 10:10 Height & Weight Height & Weight: Anesthesia: Height & Weight Height 6 ft 04/20/25 16:09 Respiratory Assessment Respiratory Assessment - environmental protection forester: Respiratory Tract Infection Hx - environmental protection forester Hx Respiratory Tract Infection No 04/22/25 10:10 STOP Sleep Apnea STOP Sleep Apnea - environmental protection forester: STOP Sleep Apnea - environmental protection forester Hx Hypertension No 04/22/25 10:10 Hx Sleep Apnea No 04/22/25 10:10 CPAP BIPAP Do you snore loudly (louder No 04/22/25 10:10 than talking or can be heard Do you often feel tired/ No 04/22/25 10:10 fatigued/ sleepy during daytime? Has anyone observed you stop No 04/22/25 10:10 breathing during sleep? STOP Results Negative 04/22/25 10:10 QUESTION #5 FULL TEXT : Do you snore loudly (louder than talking or can be heard through closed doors)? Tobacco Use History Tobacco Use History - environmental protection forester: Tobacco Use History - environmental protection forester Tobacco Use Smoking Status Never smoker 04/22/25 10:10 Hx Tobacco Use No 04/22/25 10:10 Years Smoking Packs Smoked per Day Smoking Cessation Date was within the last 15 years Hx Smoking Cessation Date Hx Smoking Cessation Counseling Hematologic Medial History Hematologic Hx - environmental protection forester: Hematologic Medical Hx - manager rn case Hx of Blood Transfusion No 04/22/25 10:10 Hx of Transfusion in last 3 No 04/22/25 10:10 Months Date of Last Transfusion (if within last 3 months) Ever experience any problems No 04/22/25 10:10 with transfusion(s)? Specify any problems Hx of Preganancy in last 3 N/A 04/22/25 10:10 Months Nurse Filling Out Transfusion NBUCHER 04/22/25 10:10 & Questions: Date: 04/22/25 04/22/25 10:10 Time: 10:11 04/22/25 10:10 Patient unable to answer at this time (ie. confused, unrespo /Reproduction History /Reproductive History - environmental protection forester: /Reproductive Hx- environmental protection forester Hx Now No 04/22/25 10:10 Gestational Age (in weeks): EDC: Hx Hx Para Hx Section SAB No 04/22/25 10:10 Does the father of the baby or his family experience fever w Father of the baby Malignant Hypertension history comment [facility] Medical History Wears glasses Non-smoker Osteoarthritis Anemia Home Medications ?Medication ?Instructions ?Recorded ?Last Taken ?Type medroxyprogesterone 10 mg tablet 10 mg PO DAILY #60 tabs 04/20/25 Unknown Rx (Provera) Allergy/AdvReac Type Severity Reaction Status Date / Time Latex, Natural Rubber Allergy Rash Verified 04/22/25 10:09 Family History Mother Ductal carcinoma HER2 negative Aunt Ductal carcinoma Sister Melanoma Grandmother Ovarian cancer Non-Hodgkin lymphoma Surgical History History of eye surgery H/O knee surgery Social History number of children: 1 Smoking Status: Never smoker alcohol intake: current alcohol intake frequency: a few times a week substance use type: does not use sena/advent: Jew seatbelt use: always do you feel safe at home: Yes additional social history: Musa Review of Systems (Anesthesia) ROS Narrative System reviewed and no additional complaints, except as documented.
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
[2025-05-01 09:23] LABS: Hematocrit 28.9 % (37-47); Hemoglobin 8.7 g/dL (12.0-15.0); Immature Granulocytes Count 0.020 X10^3/uL (0.0-0.0); Mean Corp Hgb Conc 30.1 g/dL (32-36); Mean Corpuscular Volume 82.8 fL (81-99); Mean Platelet Vol. 8.5 fl (6.2-12.0); NRBC Flagged by Analyzer 0 % (0-5); Platelet Count 200 K/mm3 (150-450); RBC Distribution Width CV 15.1 % (11.6-14.6); RBC Distribution Width SD 45.6 fl (35.1-43.9); Red Blood Count 3.49 M/mm3 (4.2-5.4); White Blood Count 4.2 K/mm3 (4.4-11.0)
--- NOTE | 2025-05-01 09:30 | EMB_PTH ---
PATIENT: CINDY HERNANDEZ LOC: [facility] [place] U#:[id number] AGE/SX: 49/F ROOM: RE05/01/[address]: Dr. Sade Montez MD : 1975 BED: DIS: 05/01/2025 SPEC #: [id number] RECD: 05/01/25 11:35 STATUS: JV REJoss #: [id number] BALTAZAR: 05/01/25 09:[address]: Sade Montez DEPT: SURGICAL PATHOLOGY RECD BY: Rebekah Gomez ENTERED: 05/01/25 13:20 SP TYPE: ENDOM BX/C OTHR DR: Amber Cleary MD Tissues: Endometrium, NOS Procedures: Surgery Specimen Level IV HEADER OPERATION: Hysteroscopy, D&C PRE-OP DIAGNOSIS: Abnormal uterine bleeding, family history of ovarian cancer TISSUE SUBMITTED: A- Endometrial curettings MICROSCOPIC DIAGNOSIS A. Endometrium, curettage: - Secretory endometrium with progestin effect and patchy necrosis. - Fragments of superficial myometrium. - Scant benign endocervical mucosa. MICROSCOPIC DESCRIPTION Slides are reviewed. GROSS DESCRIPTION A. Received in formalin labeled with the patient's name and date of . Designated as endometrial curettings 6.8 x 4.4 x 0.8 cm aggregate of queen-pink to red tissue fragments and clotted blood. Entirely submitted in 12 cassettes. [place] 05/01/2025 CPT:57512
[2025-05-01] MEDS: Lactated Ringers 1,000 ML 1000 ML IV (09:39)
[2025-05-01] MEDS: Midazolam 2 MG/2 ML Syringe IV (09:39)
[2025-05-01] MEDS: fentaNYL 100 MCG/2 ML Ampul IV (09:50)
[2025-05-01] MEDS: Lidocaine 1% (5 ml sdv) 5 ML Vial IV (09:50)
[2025-05-01] MEDS: Lidocaine 1% (20 ml mdv) 20 ML Vial (10:09)
--- NOTE | 2025-05-01 10:25 | DCINST_ITS ---
Discharge Instructions DC O2, CPAP, BIPAP needs Home O2 Discharge instructions: No Dressing / Incision Discharge Activity: Return to Normal Activity, May Shower and May Take a Tub Bath (after 1 week) May resume sexual activity in: 1-2 weeks Weight Bearing Status: Weight bearing as tolerated Lifting Restrictions: none Dressing / Incision Call your doctor if you observe: Fever of 101 or Higher, Using more than 1 pad per hour, Shortness of breath and Uncontrolled pain Follow Up Care Please Follow Up With: Sade Montez MD When: Call [phone] to schedule appointment. Test Results: Test results from this visit will be discussed in further detail at your follow- up appointment, if applicable. Discharge Plan Admission Attending Provider: Sade Montez Primary Care Provider: Amber Cleary Instructions Print Language: Argentine Discharge Orders/Prescriptions Prescriptions: No Action medroxyprogesterone [Provera] 10 mg tablet 10 mg PO DAILY Qty: 60 1RF Rx Instructions: 1 tab 3 times daily x 3 days then 1 tab twice daily x 3 days then 1 tab daily to completion Other Ambulatory Orders: 12 Lead EKG (Routine) Location: None Selected Ordered By: Dr. Sade Montez Referrals / Follow Up: Amber Cleary MD [Primary Care Provider, Family Practice] Disposition Disposition (needs filled in before D/C Order can be placed): Home, Self Care
--- NOTE | 2025-05-01 10:25 | OP.PCM_ITS ---
Multi Select Codes Urinary/Genital Urinary/Genital CPT Codes: 23394 Hysteroscopy, Polypectomy, Symphion Operative Report (Standard) Operative Information Date of Procedure: 05/01/25 Pre-Operative Diagnosis: AUB, anemia Post-Operative Diagnosis: same Surgery/Procedure Performed: dilation and curettage hysteroscopy symphion broadcast program director: No Type of Anesthesia: IV Sedation RN Documented Start/Stop Times: Operation Date: 05/01/25 09:30 Case Time Into Pre-Op 05/01/25 08:25 Out of Pre-Op 05/01/25 09:35 Anesthesia Start 05/01/25 09:39 Into Room 05/01/25 09:39 Procedure Start 05/01/25 10:03 Procedure End 05/01/25 10:25 Anesthesia End 05/01/25 10:30 Out of Room 05/01/25 10:30 Into Recovery 05/01/25 10:35 Into Phase II Recovery 05/01/25 11:02 Out of Recovery 05/01/25 11:02 Out of Phase II 05/01/25 11:37 Procedure Start Time: 10:03 Procedure Stop Time: 10:25 Select all DRAINS/GRAFTS/IMPLANTS that apply: None Estimated Blood Loss: 25 Specimen collected: Yes Description of specimen(s) removed: endometrial curetting Description of surgery: Patient was prepped and draped in a normal sterile fashion under MAC anesthesia. A weighted speculum was placed in the vagina and the anterior lip of the cervix was grasped with a single-tooth tenaculum. A paracervical block was placed with 1% lidocaine. Cervix was progressively dilated to allow passage of a 5 mm hysteroscope. The lining was fully visualized and noted to have a very thick lining . Uterine sounded to 8 cm. Using the symphion device, the lining was progressively removed without complications. Direct visual curettage was performed using the device , and all specimens were sent to pathology. All instruments were removed from the vagina and excellent hemostasis was noted. Patient was awoken and taken to recovery in stable condition. Surgical Findings: thickened lining Complications Complications: No
--- NOTE | 2025-05-01 10:35 | PCM.POST.ANE ---
Anesthesia: Postop Eval I Current Vital Signs Temperature: 97.8 F Pulse Rate: 86 Blood Pressure: 98/57 Respiratory Rate: 20 Pulse Ox: 98 Oxygen Delivery Method: Room Air Assessment Airway patent: Yes Spontaneous unlabored respirations: Yes Mental status: Awake and Calm nausea: No Vomiting: No Anesthesia Complication: No Fluid Hydration Crystalloid volume administer (ml): 700 Total IV fluid infused: 700 Progress Note Anesthesia document: Postop Eval 1 completed: Yes
[2025-05-01] MEDS: TRANEXAMIC ACID 1,000 MG in 0.9% Normal Saline (100mL Bag) 100 ML 280 MG IV (10:37)
--- NOTE | 2025-05-01 11:47 | POSTOPAN2_ITS ---
Anesthesia Postop Eval I Sum Postop Eval Completion status Anesthesia document: Postop Eval 1 completed: Yes Anesthesia Postop Eval I Summary Anesthesia Postop Eval I Summary: Anesthesia Postop Eval I: Assessment Summary Airway patent Yes 05/01/25 10:36 [email or web address] Spontaneous unlabored Yes 05/01/25 10:36 [email or web address] respirations Mental status Awake,Calm 05/01/25 10:36 [email or web address] nausea No 05/01/25 10:36 [email or web address] Vomiting No 05/01/25 10:36 [email or web address] Anesthesia Postop Eval I: Fluid Summary Crystalloid volume administer 700 05/01/25 10:36 [email or web address] (ml) Colloids volume administered ( ml) Blood Product volume administered (ml) Total IV fluid infused 700 05/01/25 10:36 [email or web address] Anesthesia Postop Eval I: Summary Notes Anesthesia Complication No 05/01/25 10:36 [email or web address] Anesthesia Complication Comment: Post-operative progress note Anesthesia: Postop Eval II Evaluation Mental status: Awake Pain Level: 0 nausea: No Vomiting: No
--- NOTE | 2025-05-01 11:47 | PCM.POSTANE2 ---
Anesthesia Postop Eval I Sum Postop Eval Completion status Anesthesia document: Postop Eval 1 completed: Yes Anesthesia Postop Eval I Summary Anesthesia Postop Eval I Summary: Anesthesia Postop Eval I: Assessment Summary Airway patent Yes 05/01/25 10:36 CONTRACT [email or web address] Spontaneous unlabored Yes 05/01/25 10:36 CONTRACT [email or web address] respirations Mental status Awake,Calm 05/01/25 10:36 CONTRACT [email or web address] nausea No 05/01/25 10:36 CONTRACT [email or web address] Vomiting No 05/01/25 10:36 CONTRACT [email or web address] Anesthesia Postop Eval I: Fluid Summary Crystalloid volume administer 700 05/01/25 10:36 CONTRACT [email or web address] (ml) Colloids volume administered ( ml) Blood Product volume administered (ml) Total IV fluid infused 700 05/01/25 10:36 CONTRACT [email or web address] Anesthesia Postop Eval I: Summary Notes Anesthesia Complication No 05/01/25 10:36 CONTRACT [email or web address] Anesthesia Complication Comment: Post-operative progress note Anesthesia: Postop Eval II Evaluation Mental status: Awake Pain Level: 0 nausea: No Vomiting: No
== END 2025-05-01 11:37 | disposition home or self-care (01) ==
LOC: SDC 08:05 → AC 08:06
PROVIDERS: PCP Family Medicine; Referring Provider Obstetrics & Gynecology; Visit Provider Obstetrics & Gynecology
PROC: 0UB98ZZ Excision of Uterus, Via Natural or Artificial Opening Endoscopic (ICD-10-PCS; CPT 58558; principal; 2025-05-01 09:15)
DX: N84.0 Polyp of corpus uteri (principal); N92.0 Excessive and frequent menstruation with regular cycle; D50.9 Iron deficiency anemia, unspecified
CPT/HCPCS: 58558; 00952; 36415; 81025; 85025; 85027; 86850; 86900; 86901; 88305; 93005; J2405

== ENCOUNTER → 2025-05-13 | Outpatient (CLI) | payer OTHER, SELFPAY ==
--- OUTSIDE RECORDS SUMMARY | 2025-05-13 19:24 | XMS RPT_ITS | CCD ---
Author Organization [facility] Care Team Providers Care Pipe Fitter Helper Name Role Phone Amber Cleary Primary Care Unavailable Amber Cleary Referring Unavailable Sade Montez Attending Unavailable Tiffany Banda Attending Unavailable Amber Cleary Primary Care Unavailable Amber Cleary Primary Care Unavailable Sade Montez Attending Unavailable Allergies Allergy Classification Reported Allergen(s) Allergy Type Date of Onset Reaction(s) Facility (1 source) natural latex rubber Drug allergy (disorder) 04-01-2025 [facility] Repository Problems Problem Classification Problem Date Documented [...] 17-Hydroxyprogesteroneon 17ALPHA [place]-PROG 38 ng/dL Normal . [facility] Comment on above: Order Comment: Test( s) [id number] Progesterone LCMSwas developed and its performance characteristicsdetermined by [employer]. It has not been cleared or approvedby the Food and Drug Administration.N Result Comment: Adul t Female Follicular 15 - 70 Luteal 35 - 290 Performed at: [address] [id number] Vehicle Washer: Lilia Taylor MD, Phone: [phone] Performed By: #### L 3300.1500, L3100.5400, L501.9520, L3300.1750, L3100.9000, L3100.5125, L3400.4800, L506.0400 ####[facility] [address] [place], [address] PAP IG HPV APTIMA 16/18,45on 04-06-2025 ADEQ Comment Normal . [facility] Comment on above: Order Comment: Speci men Comment: [id number] Comment: No. of containers..01 ThinPrep Vial Result Comment: Sati sfactory for evaluation. Endocervical and/or squamous metaplastic cells (endocervical component) are present. Performed By: #### L 7400.0280 ####[facility] [address] [place], [address] COMM . Normal . [facility] Comment on above: Order Comment: Speci men Comment: [id number] Comment: No. of containers..01 ThinPrep Vial Performed By: #### L 7400.0280 ####[facility] [address] [place], [address] COMMENT Comment Normal . [facility] Comment on above: Order Comment: Speci men Comment: [id number] Comment: No. of containers..01 ThinPrep Vial Result Comment: This liquid based ThinPrep(R) pap test was interpreted using the [employer](R) Genius(TM) Cervical Algorithm whole slide imaging system. Performed By: #### L 7400.0280 ####[facility] [address] [place], [address] DIAG Comment Normal . [facility] Comment on above: Order Comment: Speci men Comment: [id number] Comment: No. of containers..01 ThinPrep Vial Result Comment: NEGA TIVE FOR INTRAEPITHELIAL LESION OR MALIGNANCY. Performed By: #### L 7400.0280 ####[facility] [address] [place], [address] HPV APTIMA, HR Negative Normal Negative [facility] Comment on above: Order Comment: Speci men Comment: [id number] Comment: No. of containers..01 ThinPrep Vial Result Comment: This nucleic acid amplification test detects fourteen high- risk HPV types (16,18,31,33,35,39,45,51,52,56,58,59,66,68) without differentiation. Performed By: #### L 7400.0280 ####[facility] [address] [place], [address] HPV Cassi Rfx Comment Normal . [facility] Comment on above: Order Comment: Speci men Comment: [id number] Comment: No. of containers..01 ThinPrep Vial Result Comment: Crit eria not met, HPV Genotype not performed. Performed at: - [facility] [id number] Vehicle Washer: Laly Martinez MD, Phone: [phone] Performed at: =G - [facility] [address] [id number] Vehicle Washer: Laly Martinez MD, Phone: [phone] Performed By: #### L 7400.0280 ####[facility] [address] [place], [address] PAPSMR Comment Normal . [facility] Comment on above: Order Comment: Speci men Comment: [id number] Comment: No. of containers..01 ThinPrep Vial Result Comment: The Pap smear is a screening test designed to aid in the detection of premalignant and malignant conditions of the uterine cervix. It is not a diagnostic procedure and should not be used as the sole means of detecting cervical cancer. Both false-positive and false-negative reports do occur. Performed By: #### L 7400.0280 ####[facility] [address] [place], [address] PERFORM Comment Normal . [facility] Comment on above: Order Comment: Speci men Comment: [id number] Comment: No. of containers..01 ThinPrep Vial Result Comment: Jayro Poole, Pick Pack Worker (ASCP) Performed By: #### L 7400.0280 ####[facility] [address] [place], [place], [id number] DHEA Sulfateon 04-04-2025 DHEA SULFATE 60.5 ug/dL Normal 41.2-243.7 [facility] Comment on above: Order Comment: N Performed By: #### L 3300.1500, L3100.5400, L501.9520, L3300.1750, L3100.9000, L3100.5125, L3400.4800, L506.0400 ####[facility] [address] [facility] [place], [place], [address] PROLACTIN 4465on 04-04-2025 PROLACTIN 18.7 ng/mL Normal 4.8-33.4 [facility] Comment on above: Performed By: #### L 3300.1500, L3100.5400, L501.9520, L3300.1750, L3100.9000, L3100.5125, L3400.4800, L506.0400 #### [facility] Laboratory [address] [place], [place], [address] Testosterone Freeon 04-04-20 TESTOSTER FREE 0.5 pg/mL Normal 0.0-4.2 [facility] Comment on above: Result Comment: Perf ormed at: [facility] [address] [id number] Vehicle Washer: Yinka More PhD, Phone: [phone] Performed at: [facility] [address] [id number] Vehicle Washer: Lilia Taylor MD, Phone: [phone] Performed By: #### L 3300.1500, L3100.5400, L501.9520, L3300.1750, L3100.9000, L3100.5125, L3400.4800, L506.0400 ####[facility] [address] [place], [address] Estradiolon 04-01-2025 ESTRADIOL 27.7 pg/mL Normal [facility] Comment on above: Result Comment: FEMA LES [...] L501.9520, L3300.1750, L3100.9000, L3100.5125, L3400.4800, L506.0400 #### [facility] Laboratory [address] [place], [place], [address] Follicle Stimulating Hormone on 04-01-2025 FSH 17.3 mIU/mL Normal [facility] Comment on above: Result Comment: FEMA LE: Follicular: 1.4 - 18.1 mIU/mL Midcycle: 3.4 - 33.4 mIU/mL Luteal: 1.5 - 9.1 mIU/mL Post Menopause: 23.0 - 116.3 mIU/mL MALE: 1.4 - 18.1 mIU/mL Performed By: #### L 3300.1500, L3100.5400, L501.9520, L3300.1750, L3100.9000, L3100.5125, L3400.4800, L506.0400 #### [facility] Laboratory [address] [place], [address] Watch Hairspring Assembler Office Visit Reporton 04-01-2025 Watch Hairspring Assembler Office Visit Report [facility] [place] [facility] [address], [address] [place] [address] OFFICE VISIT Date of Service: 04/01/25 MR#: [id number] Acct: [id number] Name: CINDY HERNANDEZ Rep #: [id number] : 1975 Provider: Dr. Sade allan MD Age/Sex: 49/F Location: [facility] Status: Signed Intake Vital Signs 03/28/25 18:59 04/01/25 15:14 Height 6 ft 6 ft Weight: 283 lb 9 oz BMI 38.4 BP 132/76 H Intake Visit Reasons: ER F/U PER NOTE Trim Machine Operator Required: No Is patient in pain?: No [...] week substance use type: does not use sena/roman catholic: Jain seatbelt use: always do you feel safe [...] necessary. 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 - [place]ides [place] of blocks from the clinic. 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 Villareal's glands, no vulvar lesions, no cervical lesions, good vaginal support, physiologic discharge prese (more content not included)... Normal [facility] T4 Free Directon 04-01-2025 T4 FREE DIRECT 1.00 ng/dL Normal 0.76-1.46 [facility] Comment on above: Performed By: #### L 3300.1500, L3100.5400, L501.9520, L3300.1750, L3100.9000, L3100.5125, L3400.4800, L506.0400 #### [facility] Laboratory [address] [place], [place], [id number] Thyroid Stim Hormone (TSH)on 04-01-2025 TSH 2.160 uIU/mL Normal 0.300-4.200 [facility] Comment on above: Performed By: #### L 3300.1500, L3100.5400, L501.9520, L3300.1750, L3100.9000, L3100.5125, L3400.4800, L506.0400 #### [facility] Laboratory [address] [place], [address] CBC W/Diff, Automatedon - Absolute Lymph 1.36 X10 3/uL Normal 0.83-4.51 [facility] Comment on above: Performed By: #### L 100.0100 ####[facility] [address] [place], [address] Absolute Neut 2.7 X10 3/uL Normal 2.0-7.7 [facility] Comment on above: Performed By: #### L 100.0100 ####[facility] [address], [address] Basophils/100 WBC (Bld) 1.1 % High 0-1 [facility] Comment on above: Performed By: #### L 100.0100 ####[facility] [address] [place], [address] Eosinophils/100 WBC (Bld) 1.5 % Normal 0-5 [facility] Comment on above: Performed By: #### L 100.0100 ####[facility] [address] [place], [address] Erythrocyte distribution width (RBC) [Ratio] 14.7 % High 11.6-14.6 [facility] Comment on above: Performed By: #### L 100.0100 ####[facility] [address] [place], [address] Hematocrit (Bld) [Volume fraction] 28.8 % Low 37-47 [facility] Comment on above: Performed By: #### L 100.0100 ####[facility] [address] [place], [address] Hemoglobin (Bld) [Mass/Vol] 8.8 g/dL Low 12.0-15.0 [facility] Comment on above: Performed By: #### L 100.0100 ####[facility] [address] [place], [address] IG% 0.200 Normal 0.0-0.9 [facility] Comment on above: Result Comment: IG% - Immature Granulocytes (promyelocytes, myelocytes and metamyelocytes) > 1% indicates that a LEFT SHIFT is Present. Performed By: #### L 100.0100 ####[facility] [address] [place], [address] Lymphocytes/100 WBC (Bld) 30.0 % Normal 19-41 [facility] Comment on above: Performed By: #### L 100.0100 ####[facility] [address] [place], [address] MCH (RBC) [Entitic mass] 27.6 pg Normal 27.0-32.0 [facility] Comment on above: Performed By: #### L 100.0100 ####[facility] [address] [place], [address] MCHC (RBC) [Mass/Vol] 30.6 g/dL Low 32-36 [facility] Comment on above: Performed By: #### L 100.0100 ####[facility] [address] [place], [address] MCV (RBC) [Entitic vol] 90.3 fL Normal 81-99 [facility] Comment on above: Performed By: #### L 100.0100 ####[facility] [address] [place], [address] Monocytes/100 WBC (Bld) 6.8 % Normal 0-10 [facility] Comment on above: Performed By: #### L 100.0100 ####[facility] [address] [place], [address] Neutrophils/100 WBC (Bld) 60.4 % Normal 47-70 [facility] Comment on above: Performed By: #### L 100.0100 ####[facility] [address] [place], [address] Nucleated RBC (Bld) [#/Vol] 0 10*3/uL Normal 0-5 [facility] Comment on above: Performed By: #### L 100.0100 ####[facility] [address] [place], [address] Platelet mean volume (Bld) [Entitic vol] 8.3 fL Normal 6.2-12.0 [facility] Comment on above: Performed By: #### L 100.0100 ####[facility] [address] [place], [address] Platelets (Bld) [#/Vol] 209 10*3/uL Normal 150-450 [facility] Comment on above: Performed By: #### L 100.0100 ####[facility] [address] [place], [address] RBC (Bld) [#/Vol] 3.19 10*6/uL Low 4.2-5.4 [facility] Comment on above: Performed By: #### L 100.0100 ####[facility] [address] [place], [address] RDW SD 47.8 fl High 35.1-43.9 [facility] Comment on above: Performed By: #### L 100.0100 ####[facility] [address] [place], [address] WBC (Bld) [#/Vol] 4.5 10*3/uL Normal 4.4-11.0 [facility] Comment on above: Performed By: #### L 100.0100 ####[facility] [address] [place], [address] Emergency Department Summary on 03-28-2025 Emergency Department Summary [facility] Medical Records Department [address] [place] [address] Emergency Department Summary 03/28/25 MR#: [id number] Acct: [id number] Name: CINDY HERNANDEZ Rep #: [id number] : 1975 49 From: Tiffany Banda DO [...] for evaluation. She has not seen an UNBUNDLER for this. She has not seen her [...] heart s (more content not included)... Normal [facility] ,Serum,hCG Quali.on 03-28-2025 HCG, SERUM QUAL Negative Normal [facility] Comment on above: Performed By: #### L 700.6800 #### [facility] Laboratory [address] [place], [address] Transvaginal Non-on 03-28-2025 Transvaginal Non- [facility] Imaging Services [address] [place] [address] Transvaginal Non- MR#: [id number] Acct: [id number] Name: CINDY HERNANDEZ Rep #: [id number] : 1975 F 49 From: Clayton Rainey MD PCP: Dr. Amber Cleary MD Status: REG ER Study: Transvaginal Non- Date of Exam: Exam# [id number] Ordering Dr: Tiffany Banda DO PROCEDURE: TRANSVAGINAL [...] hyperplasia/carcinoma, endometrial polyp, or submucosal fibroid. Recommend UNBUNDLER referral and endometrial sampling. 2. Prominent periuterine veins, as can be seen with the clinical diagnosis of pelvic congestion syndrome. Reading Location: [facility] CC: Dr. Amber Cleary MD; Dr. Tiffany Banda DO [employer]: Signed Normal [facility] Type AND Screenon 11-01-2025 Ab SCREEN GEL Negative [facility] Comment on above: Order Comment: HVAG Performed By: #### B TS #### [facility] Laboratory [place], [address] Absolute lymphocyte countOrd ered By: Dr. Jeong on 09-26-2022 Lymphocytes Auto (Unsp spec) [#/Vol] 1.58 10*3/uL 0.83-4.51 [facility] Basophil percentageOrdered B y: Dr. Jeong on 09-26-2022 Basophils/100 WBC (Bld) 1.5 % 0-1 [facility] Eosinophils/100 WBC (Bld) 2.5 % 0-5 [facility] Neutrophils (Bld) [#/Vol] 1.9 10*3/uL 2.0-7.7 [facility] Neutrophils/100 WBC (Bld) 48.7 % 47-70 [facility] WBC (Bld) [#/Vol] 4.0 10*3/uL 4.4-11.0 [facility] Blood erythrocytes count (nu mber/volume)Ordered By: Dr. Jeong on 09-26-2022 RBC (Bld) [#/Vol] 4.46 10*6/uL 4.2-5.4 [facility] Blood hemoglobin measurement (mass/volume)Ordered By: Dr. Jeong on 09-26-2022 Hemoglobin (Bld) [Mass/Vol] 13.7 g/dL 12.0-15.0 [facility] Blood lymphocytes/100 leukoc ytesOrdered By: Dr. Jeong on 09-26-2022 Lymphocytes/100 WBC (Bld) 39.9 % 19-41 [facility] Blood monocytes/100 leukocyt esOrdered By: Dr. Jeong on 09-26-2022 Monocytes/100 WBC (Bld) 7.1 % 0-10 [facility] Blood platelet mean volumeOr dered By: Dr. Jeong on 09-26-2022 Platelet mean volume (Bld) [Entitic vol] 8.7 fL 6.2-12.0 [facility] Determination of erythrocyte mean corpuscular volume (MCV)Ordered By: Dr. Jeong on 09-26-2022 MCV (RBC) [Entitic vol] 95.1 fL 81-99 [facility] Hematocrit Auto (Bld) [Volum e fraction]Ordered By: Dr. Jeong on 09-26-2022 Hematocrit (Bld) [Volume fraction] 42.4 % 37-47 [facility] Laboratory - Chemistry and C hemistry - challengeOrdered By: Dr. Jeong on 09-26-2022 Free T4 [Mass/Vol] 0.88 ng/dL 0.76-1.46 [facility] Laboratory - Hematology and Cell countsOrdered By: Dr. Jeong on 09-26-2022 Erythrocyte distribution width (RBC) [Entitic vol] 44.3 fL 35.1-43.9 [facility] Erythrocyte distribution width (RBC) [Ratio] 12.7 % 11.6-14.6 [facility] Immature granulocytes/100 WBC (Bld) 0.300 % 0.0-0.9 [facility] Comment on above: IG% - Immature Granu locytes (promyelocytes, myelocytes and metamyelocytes) > 1% indicates that a LEFT SHIFT is Present. MCH (RBC) [Entitic mass] 30.7 pg 27.0-32.0 [facility] Nucleated RBC/100 WBC (Bld) [Ratio] 0 % 0-5 [facility] MCHC Auto (RBC) [Mass/Vol]Or dered By: Dr. Jeong on 09-26-2022 MCHC (RBC) [Mass/Vol] 32.3 g/dL 32-36 [facility] No Panel InformationOrdered By: Dr. Jeong on 09-26-2022 Follicle Stimulating Hormone 5.7 mIU/mL [facility] Comment on above: NORMAL REFERENCE RAN [facility] FEMALE FOLLICULAR 2.3 - 12.6 mIU/mL MID-CYCLE PEAK 5.2 - 17.5 mIU/mL LUTEAL 1.7 - 12.9 mIU/mL POST-MENOPAUSAL ON MHT 5.9 - 72.8 mIU/mL NOT ON MHT 12.7 - 132.2 mlU/mL MALE 0.7 - 10.8 mIU/mL Luteinizing Hormone 6.4 mIU/mL [facility] Comment on above: NORMAL REFERENCE RAN GES FEMALE FOLLICULAR 1.9 - 26.2 mIU/mL MID-CYCLE PEAK 22.8 - 76.1 mIU/mL LUTEAL 0.6 - 16.6 mIU/mL POST-MENOPAUSAL ON MHT 1.1 - 52.4 mIU/mL NOT ON MHT 8.6 - 61.8 mIU/mL MALE 1.2 - 10.6 mIU/mL Thyroid Stimulating Hormone (TSH) 3.79 uIU/mL 0.358-3.74 [facility] Platelets bldOrdered By: Dr. Jeong on 09-26-2022 Platelets (Bld) [#/Vol] 323 10*3/uL 150-450 [facility] Serum or plasma estradiol (E 2) measurement (mass/volume)Ordered By: Dr. Jeong on 09-26-2022 E2 [Mass/Vol] 109.8 pg/mL [facility] Comment on above: NORMAL REFERENCE RAN GES [...] Jeong on 09-26-2022 Prolactin [Mass/Vol] 15.3 ng/mL [facility] Comment on above: NORMAL REFERENCE RAN GES FEMALE NON- 2.2 - 30.3 ng/mL 8.1 - 347.6 ng/mL POST-MENOPAUSAL 0.7 - 31.5 ng/mL MALE 2.5 - 17.4 ng/mL Serum or plasma testosterone free measurement (mass/volume)Ordered By: Dr. Jeong on 09-26-2022 Testosterone Free [Mass/Vol] 1.3 pg/mL 0.0-4.2 [facility] Comment on above: Performed at: [address] [id number] Director: Lilia Taylor MD, Phone: [phone] Encounters Encounter Date Encounter Type Care Provider Facility Start: 04-01-2025 ambulatory [facility] Facility:[facility] Start: 04-01-2025 End: 04-01-[facility] Start: 03-28-2025 End: 03-28-2025 Emergency department patient visit Tiffany Banda Facility:[facility] Start: 09-26-2022 End: 09-26-2022 ambulatory [facility] spital Work Phone: Start: 09-26-2022 End: 09-26-2022 Patient encounter procedure [facility] [place] structures assembler Off Payers Date Payer Category Payer Self-pay [id number] 2025 Unknown [id number] Unknown [id number] [id number] [id number] Unknown [id number] [id number] Unknown [id number] [id number] Social History Date Type Detail Facility Tobacco smoking stat [facility] Unknown if ever smoked [facility] Work Phone: Start: 1975 Sex Assigned At Female [facility] Evaluation note Note Date & Type Note Facility Evaluation note No assessment information availa ble [facility] Work Phone: Summary Purpose Family History No [...] section and content) DATE CREATED AUTHOR 04/10/2025 [facility] FOR RECORDS PERTAINING TO PATIENTS WHO [...] BE BASED ON THE PRIMARY CLINICAL RECORDS. [facility] [employer] [facility]. provides no warranty or guarantee of the accuracy or completeness of information in this document.
== END | disposition home or self-care (01) ==
PROVIDERS: PCP Family Medicine; Visit Provider Nurse Practitioner Women's Health
DX: D64.9 Anemia, unspecified (principal)
CPT/HCPCS: 36415